=== PATIENT | female | born 1970 | race Asian ===

== ENCOUNTER 2021-04-02 10:02 | Emergency (ER) | payer BC, OTHER ==
[~2021-04-02] VITALS: Ht 152.4 cm; Wt 70.8 kg
[2021-04-02 11:22] LABS: Basophils # (auto) 0.1 10 ^3/uL (0-0.2); Basophils % (auto) 0.4 % (0.0-2.0); Eosinophils # (auto) 0 10 ^3/uL (0-0.8); Neutrophils # (auto) 11.5 10 ^3/uL (1.6-8.6); White Blood Cell 14.1 10^3/uL (4.4-10.8)
[2021-04-02 11:24] LABS: Eosinophils % (auto) 0.3 % (0.0-7.0); Hemoglobin 12.5 g/dL (12.2-16.2); Lymphocytes # (auto) 1.7 10 ^3/uL (0.4-5.4); Lymphocytes % (auto) 12.3 % (10.0-50.0); Mean Corpuscular Hgb Conc. 31.1 g/dL (32.0-36.0); Mean Corpuscular Volume 70.7 fL (80.0-100.0); Monocytes # (auto) 0.8 10 ^3/uL (0-1.3); Monocytes % (auto) 5.5 % (0.0-12.0); Neutrophils % (auto) 81.5 % (37.0-80.0); Nucleated Red Blood Cells % 0.1 %; Red Blood Cells 5.67 10^6/uL (4.0-5.20); Red Cell Distribution Width 18.8 % (11.8-14.3)
[2021-04-02 11:40] LABS: Albumin 3.8 g/dL (3.4-5.0); Calcium 8.9 mg/dL (8.5-10.1); Potassium 4.1 mmol/L (3.5-5.1)
[2021-04-02] MEDS ORDERED: LABETALOL HCL 5 MG/ML 4ML SYRINGE IV ONE ×3 (11:45→12:45)
[2021-04-02 11:49] LABS: BUN/Creatinine Ratio 23.6; Bilirubin, Total 0.5 mg/dL (0.2-1.0); Total Protein 8.7 g/dL (6.4-8.2)
[2021-04-02 13:03] VITALS: BP 160/80
== END 2021-04-02 13:17 | disposition short-term general hospital (02) ==
LOC: ER 10:02
DX: I62.9 Nontraumatic intracranial hemorrhage, unspecified (principal); R53.1 Weakness; I16.1 Hypertensive emergency
CPT/HCPCS: 36415; 70450; 72125; 80053; 84484; 85025; 93005; 96365; 96375; 96376; 99291; J3490